=== PATIENT | male | born 1990 | race Caucasian/White ===

== ENCOUNTER 2020-02-09 13:21 | Emergency (ER) | payer OTHER ==
[~2020-02-09] VITALS: Ht 182.9 cm; Wt 68.2 kg
--- NOTE | 2020-02-09 13:35 | NUR ---
PT BIB [facility] FROM A [employer] [facility]OB SITE WHERE HE FELL BACKWARDS AND HAD A WITNESSED SEIZURE FOR ABOUT 2 MIN. PT DENIES ANY MEDICAL HX, NO HX OF SEIZURES. REPORTS HE DID DRINK LAST NIGHT. DENIES ANY DRUG USE. PER EMS, PT WAS POST ICTAL UPON ARRIVAL, [facility] 14. WITHIN HALF HOUR, PT IMPROVED TO BASLINE, [facility] 15, A&OX4. PT ARRIVES TO ED A&OX4, SLIGHTLY TACHY WITH HR IN 100s, STATES, "I THINK I WAS JUST DEHYDRATED". PT WAS GIVEN 1L BOLUS OF NS EN ROUTE. BS 109 PER EMS. EKG DONE UPON ARRIVAL. SEIZURE PADS IN PLACE. RV'WD POC WITH PT.
--- NOTE | 2020-02-09 14:25 | NUR ---
ER PA WAS IN TO SEE PT.
--- NOTE | 2020-02-09 14:53 | NUR ---
PT STILL VERY TREMULOUS. STATES, "I THINK I'M JUST FREAKED OUT CAUSE I HAD A SEIZURE". PT INTIALLY REPORTED THAT HE DRINKS "SOME"; NOW STATES, "YEAH, I DRINK A LOT". Addendum: 02/09/20 at 1453 by HBENSON WILL GIVE ATIVAN AND NS BOLUS PER ORDERS.
[2020-02-09] MEDS ORDERED: LORazepam 2 MG/ML, 1ML ONE (14:54)
--- NOTE | 2020-02-09 14:59 | NUR ---
PT RETURNS FROM CT.
[2020-02-09] MEDS ORDERED: SODIUM CHLORIDE 0.9% 1,000ML IVBOLUS ONE (15:00)
[2020-02-09] MEDS ORDERED: SODIUM CHLORIDE FLUSH 10ML SYR IVF ONE (15:00)
[2020-02-09] MEDS ORDERED: LORazepam 2 MG/ML, 1ML IVPush ONE (15:00)
[2020-02-09 15:01] LABS: BASOPHILS # (AUTO) 0.01 x10^3/uL (0-0.1); BASOPHILS % (AUTO) 0 % (0-1); EOSINOPHILS # (AUTO) 0.01 x10^3/uL (0-0.4); EOSINOPHILS % (AUTO) 0 % (1-7); LYMPHOCYTES # (AUTO) 0.95 x10^3/uL (1-3.4); LYMPHOCYTES % (AUTO) 8 % (22-44); MD NO; MEAN CORPUSCULAR HEMOGLOBIN 34.7 pg (27.5-34.5); MEAN CORPUSCULAR HGB CONC 34.6 g/dL (33.2-36.2); MEAN CORPUSCULAR VOLUME 100.2 fL (81-97); MEAN PLATELET VOLUME 7.4 fL (7.4-10.4); MONOCYTES # (AUTO) 1.12 x10^3/uL (0.2-0.8); MONOCYTES % (AUTO) 9 % (2-9); NEUTROPHILS # (AUTO) 10.27 x10^3/uL (1.8-6.8); NEUTROPHILS % (AUTO) 83 % (42-75); PLATELET COUNT 210 x10^3/uL (130-400); RED BLOOD COUNT 3.84 x10^6/uL (4.38-5.82); RED CELL DISTRIBUTION WIDTH 12.4 % (9.4-14.8)
[2020-02-09 15:05] LABS: ALANINE AMINOTRANSFERASE 173 U/L (12-78); ALBUMIN 4.1 g/dL (3.4-5.0); ANION GAP 11 mmol/L (5-15); CALCIUM 8.8 mg/dL (8.5-10.1); CHLORIDE 101 mmol/L (98-107); CREATININE 0.76 mg/dL (0.7-1.3)
[2020-02-09 15:07] LABS: ALKALINE PHOSPHATASE 158 U/L (45-117)
--- NOTE | 2020-02-09 15:42 | NUR ---
PT RESTING AFTER ATIVAN. AWAKENS EASILY.
--- NOTE | 2020-02-09 15:54 | NUR ---
ERP WAS IN FOR RECHECK.
[2020-02-09 16:02] VITALS: BP 137/86
--- NOTE | 2020-02-09 16:09 | NUR ---
D/C INSTRUCTIONS & F/U APPT RV'WD WITH PT, HE VERBALIZES UNDERSTANDING. INSTRUCTED PT TO RETURN TO ED FOR ANY CONCERNING SYMPTOMS OR FOR RECURRING SEIZURE. EDUCATED PT ABOUT LAB RESULTS & ETOH CESSATION. SUBSTANCE ABUSE RESOURCES PROVIDED TO PT. PT AMBULATED OUT OF ED WITHOUT DIFFICULTY, STATES FRIEND WILL PICK HIM UP.
== END 2020-02-09 16:10 | disposition home or self-care (01) ==
LOC: ED 16:00
DX: R56.9 Unspecified convulsions (principal); R55 Syncope and collapse; E86.0 Dehydration; F17.200 Nicotine dependence, unspecified, uncomplicated
CPT/HCPCS: 36415; 70450; 80053; 85025; 93005; 96361; 96374; 99285; J2060; J7030

== ENCOUNTER 2021-03-01 20:12 | Emergency (ER) | payer SELFPAY ==
[~2021-03-01] VITALS: Ht 182.9 cm; Wt 63.7 kg
--- NOTE | 2021-03-01 20:25 | NUR ---
THIS IS A 30M BIB EMS FROM HOME FOR ALOC PER PARENTS, PT HAS STRONG ETOH ODOR UPON ARRIVAL. PER EMS REPORT, PT FOUND WITH BEER AND EMPTY SHOT GLASS NEARBY. PT DENIES ETOH HOWEVER BREATHALYZER 0.342 UPON ARRIVAL. PT CONNECTED TO MONITORING VSS NADN.
[2021-03-01 21:27] LABS: BASOPHILS % (AUTO) 1 % (0-1); EOSINOPHILS % (AUTO) 2 % (1-7); LYMPHOCYTES % (AUTO) 30 % (22-44); MEAN CORPUSCULAR HEMOGLOBIN 35.6 pg (27.5-34.5); MEAN CORPUSCULAR HGB CONC 34.3 g/dL (33.2-36.2); MEAN PLATELET VOLUME 7.2 fL (7.4-10.4); MONOCYTES % (AUTO) 11 % (2-9); NEUTROPHILS % (AUTO) 57 % (42-75); PLATELET COUNT 260 x10^3/uL (130-400); RED BLOOD COUNT 4.24 x10^6/uL (4.38-5.82); RED CELL DISTRIBUTION WIDTH 12.3 % (9.4-14.8)
[2021-03-01] MEDS ORDERED: LORazepam 2 MG/ML, 1ML IVPush PRN (21:30)
[2021-03-01] MEDS ORDERED: ONDANSETRON 2MG/ML, 2ML IVPush ONE (21:30)
[2021-03-01] MEDS ORDERED: SODIUM CHLORIDE 0.9% 1,000ML IVBOLUS ONE (21:30)
[2021-03-01] MEDS ORDERED: MAGNESIUM SULFATE 1 GM, THIAMINE 100 MG, FOLIC ACID 1 MG, MVI ADULT 10 ML in SODIUM CHL... IV ONE (21:30)
[2021-03-01 21:40] LABS: ALBUMIN 3.8 g/dL (3.4-5.0); ANION GAP 5 mmol/L (5-15); CALCIUM 8.7 mg/dL (8.5-10.1); CHLORIDE 105 mmol/L (98-107)
[2021-03-01 21:45] LABS: ALANINE AMINOTRANSFERASE 153 U/L (12-78); ALKALINE PHOSPHATASE 201 U/L (45-117); BILIRUBIN,TOTAL 0.3 mg/dL (0.2-1.0); CREATININE 0.78 mg/dL (0.7-1.3); TOTAL PROTEIN 7.8 g/dL (6.4-8.2)
--- NOTE | 2021-03-01 21:52 | NUR ---
MED REQ FROM PHARM AT THIS TIME
--- NOTE | 2021-03-01 22:10 | NUR ---
PIV STARTED FLUIDS INFUSING WITHOUT DIFFICULTY
--- NOTE | 2021-03-01 23:39 | NUR ---
PT RESTING ON YEIMI TATE FLUIDS INFUSING
--- NOTE | 2021-03-01 23:49 | NUR ---
PT AMB TO RESTROOM STEADY GAIT
--- NOTE | 2021-03-01 23:56 | NUR ---
Patient given discharge instructions and they have confirmed that they understand the instructions. Patient ambulatory with steady gait. NAD, all questions answered appropriately, denies additional needs at this time. No personal belongings left in room after discharge. pt dc with taxi voucher for safe dc home
[2021-03-01 23:57] VITALS: BP 101/72
== END 2021-03-02 | disposition home or self-care (01) ==
LOC: ED 20:42
DX: F10.129 Alcohol abuse with intoxication, unspecified (principal); F41.9 Anxiety disorder, unspecified; R56.9 Unspecified convulsions; R94.31 Abnormal electrocardiogram [ECG] [EKG]; Y90.0 Blood alcohol level of less than 20 mg/100 ml
CPT/HCPCS: 36415; 70450; 80053; 80320; 85025; 93005; 96365; 99285; J3411; J3475; J7030; G0480